=== PATIENT | male | born 1940 | race Caucasian/White ===

== ENCOUNTER 2021-11-06 19:38 | Emergency (ER) | payer MEDICARE, OTHER ==
[2021-11-06] MEDS: Diphtheria,Pertussis(Acell),Tetanus Vaccine 0.5 ML Syringe IM ONE (20:03)
[2021-11-06] MEDS: Lidocaine 1% with EPINEPHrine 1:100,000 10 ML MDV ONE (20:04)
[2021-11-06] MEDS: Lidocaine 1% with EPINEPHrine 1:100,000 10 ML MDV INJECT ONE (20:06)
== END 2021-11-06 20:50 | disposition home or self-care (01) ==
LOC: KA.ED 19:38
DX: S41.112A Laceration without foreign body of left upper arm, initial encounter (principal); Z23 Encounter for immunization; W26.8XXA Contact with other sharp object(s), not elsewhere classified, initial encounter
CPT/HCPCS: 12004; 90471; 90715; 99282-25; 99283